=== PATIENT | female | born 1945 | race Caucasian/White ===

== ENCOUNTER 2018-02-12 08:16 | Outpatient (RCR) | payer MEDICARE, OTHER | END 2018-02-14 | disposition home or self-care (01) | LOC: ONC 08:16 | PROVIDERS: ATTEND Radiology Radiation Oncology | DX: Z51.0 Encounter for antineoplastic radiation therapy (principal); D05.11 Intraductal carcinoma in situ of right breast | CPT/HCPCS: 77295; 77300; 77334; 77417 ==

== ENCOUNTER 2018-05-04 12:46 | Outpatient (RCR) | payer MEDICARE, OTHER | END 2018-05-16 | disposition home or self-care (01) | LOC: ONC 12:46 | PROVIDERS: ATTEND Radiology Radiation Oncology | DX: Z51.0 Encounter for antineoplastic radiation therapy (principal); D05.11 Intraductal carcinoma in situ of right breast | CPT/HCPCS: 77336; 77417; 99213 ==